=== PATIENT | female | born 1955 | race Hispanic/Latino ===

== ENCOUNTER 2017-03-13 05:59 | Inpatient (IN) | payer BC ==
[2017-03-13 06:39] LABS: #Basophils 0.1 thou/uL (0.0-0.2); #Eosinphils 0.2 thou/uL (0.0-0.7); #Lymphocytes 2.3 thou/uL (1.20-3.40); #Monocytes 0.4 thou/uL (0.11-0.59); #Neutrophils 2.9 thou/uL (1.40-6.50); %Basophils 2.2 % (0.0-1.0); %Lymphocytes 39.4 % (21.0-51.0); Hematocrit 35.6 % (36.0-47.0); Mean Platelet Volume 7.5 fL (7.4-10.4); Red Blood Cell (RBC) Count 3.98 mill/uL (4.20-5.40)
[2017-03-13] MEDS ORDERED: Nitroglycerin 0.4 MG TAB (25 Tab Bottle) ONE (06:42)
[2017-03-13 06:51] LABS: Prothrombin Time 13.6 SEC (12.0-14.7)
[2017-03-13 06:58] LABS: ALT (SGPT) 19 U/L (8-55); AST (SGOT) 23 U/L (5-34); Alkaline Phosphatase 99 U/L (40-150); Anion Gap 13 mmol/L (10-20); BUN (Urea Nitrogen) 23 mg/dL (9.8-20.1); Bilirubin, Total 0.6 mg/dL (0.2-1.2); Calc. Creatinine Clearance 0 mL/min (70-130); Calcium 9.6 mg/dL (7.8-10.44); Carbon Dioxide 23 mmol/L (23-31); Chloride 105 mmol/L (98-107); Estimated GFR-MDRD 56; Globulin 3.9 g/dL (2.4-3.5); Lipase 20 U/L (8-78); Magnesium 2.2 mg/dL (1.6-2.6); Protein, Total 7.6 g/dL (6.0-8.3)
[2017-03-13 07:00] LABS: Troponin I 0.184 ng/mL (< 0.028)
--- NOTE | 2017-03-13 07:58 | RAD ---
PORTABLE CHEST: Date: 03/13/17 HISTORY: Difficulty breathing and cough. FINDINGS: Heart size is borderline. There are some bibasilar interstitial lung changes consistent with atelecta sis or infiltrate. IMPRESSION: Bibasilar atelectasis versus infiltrate. POS: [facility]
[2017-03-13] MEDS ORDERED: Bumetanide 1 MG/4 ML VIAL IVP SCH (10:15)
[2017-03-13 10:22] LABS: Troponin I 0.252 ng/mL (< 0.028)
--- NOTE | 2017-03-13 10:23 | HP ---
CHIEF COMPLAINT: Shortness of breath. HISTORY OF PRESENT ILLNESS: This is a 62-year-old pleasant lady who was apparently in usual state of health until about Monday when she started having some shortness of breath. The patient thought i t would resolve by itself, but it got worse to the point that she could not lay down flat and she cou ld not take a few steps and it started happening with just minimal exertion, so she came into the [facility] for further evaluation and treatment. She also admits that this kind of feeding happened to he r during [place], but it resolved after a day. The patient says that she has some cough with so me greenish sputum production, some chills and admits to being noncompliant with diet. When she came in the blood pressure was 201/102. She has been admitted for further evaluation and treatment of th is. She denies any diarrhea, dysuria, polyuria, or fever. PAST MEDICAL HISTORY: Significant for diabetes, hypertension, hyperlipidemia. PAST SURGICAL HISTORY: Cholecystectomy, left wrist surgery, hysterectomy. SOCIAL HISTORY: Does not smoke, drink or do any recreational drugs. Lives with daughter. Works. ALLERGIES: LASIX, which gives her some kind of headache, TRAMADOL, SULFA gives her a rash. FLU SHOT S gives her Andrade's palsy and CODEINE which makes her crazy. MEDICATIONS: Levemir 50 mg p.o. b.i.d., losartan 50 p.o. daily, Coreg 6.25 b.i.d., metformin 1000 b. i.d., atorvastatin 40 daily, chlorthalidone, aspirin, and Nexium. FAMILY HISTORY: Negative for diabetes and hypertension. REVIEW OF SYSTEMS: Significant for some chills, no headache, no appetite. Some cough, no chest pain , no diarrhea, dysuria or polyuria. No memory or mood changes. No neck pain. The patient is signif icant for cough and shortness of breath. PHYSICAL EXAMINATION: VITAL SIGNS: Blood pressure when she came into the emergency room was 201/102, respirations 13. Oxy gen saturation is 99% on 2 liters, pulse of 60, temperature 97.8. GENERAL: Patient is lying in bed in no apparent distress. HEENT: Atraumatic, normocephalic. Pupils equally round, react to light. Extraocular movements inta ct. Mucous membranes moist. NECK: Supple. LUNGS: Some bibasilar rales. Air entry is good in the upper lobes, diminished in the lower lobes. HEART: S1, S2 normal. No murmurs or gallops. ABDOMEN: Soft, obese. EXTREMITIES: No cyanosis or clubbing. Some mild edema present. NEUROLOGICAL: Alert, awake, oriented. No cranial deficits. No sensorimotor deficits. LABORATORY DATA: Troponin is 0.184. BNP is 804. Sodium is 137, potassium is 4.0, chloride is 105, creatinine is 1, BUN is 23, glucose is 178. WBC count is 6, hemoglobin is 11.7, platelet is 331. ASSESSMENT AND PLAN: 1. Acute congestive heart failure exacerbation secondary to malignant hypertensive emergency. The p atient's blood pressure is down because of the nitrates she got in the ER. We will continue home med ications and give p.r.n. hydralazine to control her blood pressure. We will consult Cardiology as we ll to help optimize medications for congestive heart failure, will do echocardiogram, trend troponins . The patient is allergic to LASIX. We are going to give her a dose of Bumex, see how she reacts to it. If she has allergy to the Bumex we will get Nephrology's recommendations for appropriate diures is to make recommendations on diuretics. 2. Obesity. She has been counseled on diabetes. Insulin sliding scale. 3. Hypertension. We will continue home medications and do p.r.n. medications for now. 4. Hyperlipidemia, stable. 5. Elevated troponin, possibly secondary to demand ischemia. We will trend troponins anyway. 6. SCDs for deep venous thrombosis prophylaxis. I will work with the consultants in further caring for the patient.
[2017-03-13] MEDS ORDERED: diphenhydrAMINE 25 MG CAP PO PRN (13:19)
[2017-03-13] MEDS ORDERED: Dextrose 50% Abboject 50 ML SYRINGE SLOW IVP PRN (13:19)
[2017-03-13] MEDS ORDERED: Dextrose 5% in Water 1,000 ML IV PRN (13:19)
[2017-03-13] MEDS ORDERED: Calcium Carbonate 500 MG ChewTAB PO PRN (13:19)
[2017-03-13] MEDS ORDERED: Chloraseptic Spray 180 ml Bottle PO PRN (13:19)
[2017-03-13] MEDS ORDERED: Benzonatate 100 MG CAP PO PRN (13:19)
[2017-03-13] MEDS ORDERED: Acetaminophen 325 MG TAB PO PRN (13:19)
[2017-03-13 13:59] LABS: Troponin I 0.268 ng/mL (< 0.028)
[2017-03-13] MEDS: hydrALAZINE 25 MG TAB PO SCH ×2 (14:38→21:19)
[2017-03-13] MEDS: Carvedilol 6.25 MG TAB PO SCH (15:14)
[2017-03-13] MEDS: HumaLOG 300 UNITS/3 ML VIAL SC PRN (17:37)
[2017-03-13] MEDS: hydrALAZINE 20 MG/ML VIAL SLOW IVP PRN (17:44)
[2017-03-13 18:41] VITALS: BMI 48.6
[2017-03-13] MEDS: Famotidine 20 MG TAB PO SCH (21:19)
[2017-03-13] MEDS: Insulin Detemir 100 UNITS/ML 5 UNITS in Pre-Filled Syringe SC SCH (21:19)
[2017-03-13] MEDS: Docusate 100 MG CAP PO SCH (21:20)
[2017-03-13 21:36] LABS: Bilirubin Negative (Negative); Blood, Urine Negative (Negative); Glucose, Urine (Dipstick) Negative (Negative); Ketone, Urine Negative (Negative); Nitrite Negative (Negative); Protein, Urine (Dipstick) 100 mg/dL (Neg-Trace)
[2017-03-13 21:37] LABS: Bacteria/HPF 4+ HPF (None Seen); Hyaline Casts/LPF 0-3 HYALINE CAST LPF (0-3 Hyaline); WBC/HPF 21-50 HPF (0-3)
[2017-03-13 21:53] LABS: RBC/HPF 0-3 HPF (0-3)
[2017-03-14] MEDS: hydrALAZINE 20 MG/ML VIAL SLOW IVP PRN (04:51)
[2017-03-14 04:59] LABS: #Basophils 0.1 thou/uL (0.0-0.2); #Eosinphils 0.2 thou/uL (0.0-0.7); #Lymphocytes 2.4 thou/uL (1.20-3.40); #Monocytes 0.4 thou/uL (0.11-0.59); #Neutrophils 2.5 thou/uL (1.40-6.50); %Basophils 1.3 % (0.0-1.0); %Eosinophils 3.2 % (0.0-10.0); %Lymphocytes 43.6 % (21.0-51.0); %Monocytes 7.3 % (0.0-10.0); Hematocrit 31.4 % (36.0-47.0); Mean Platelet Volume 7.2 fL (7.4-10.4); Red Blood Cell (RBC) Count 3.49 mill/uL (4.20-5.40); White Blood Cell (WBC) Count 5.6 thou/uL (4.8-10.8)
[2017-03-14 05:35] LABS: ALT (SGPT) 14 U/L (8-55); AST (SGOT) 14 U/L (5-34); Alkaline Phosphatase 84 U/L (40-150); Anion Gap 10 mmol/L (10-20); BUN (Urea Nitrogen) 21 mg/dL (9.8-20.1); Bilirubin, Total 0.5 mg/dL (0.2-1.2); Calc. Creatinine Clearance 124 mL/min (70-130); Calcium 9.2 mg/dL (7.8-10.44); Carbon Dioxide 27 mmol/L (23-31); Chloride 104 mmol/L (98-107); Estimated GFR-MDRD 61; Globulin 3.1 g/dL (2.4-3.5); Protein, Total 6.4 g/dL (6.0-8.3)
--- NOTE | 2017-03-14 08:19 | RAD ---
RADIOGRAPH CHEST 2 VIEWS: Date: 03-14-17 Time: 7:48 a.m. HISTORY: 62-year-old female with dyspnea and CHF. COMPARISON: Prior single view study, 03-13-17. FINDINGS: There is a greater degree of blunting of the lateral costophrenic angles bilaterally now compared to the previous frontal view. The lateral view demonstrates blunting of the posterior costophrenic angle s bilaterally. There is cardiomegaly. There is pulmonary vascular prominence. Diffusely prominent int erstitial markings. No pneumothorax. IMPRESSION: 1. Evidence for congestive heart failure. 2. Small bilateral pleural effusions, increased in volume since yesterday. ITA POS: [facility]
[2017-03-14] MEDS: Famotidine 20 MG TAB PO SCH ×2 (09:47→20:47)
[2017-03-14] MEDS: Losartan Potassium 25 MG TAB PO SCH (09:47)
[2017-03-14] MEDS: hydrALAZINE 25 MG TAB PO SCH ×3 (09:48→20:48)
[2017-03-14] MEDS: Docusate 100 MG CAP PO SCH ×2 (09:49→20:56)
[2017-03-14] MEDS: Carvedilol 6.25 MG TAB PO SCH (09:49)
[2017-03-14] MEDS: Insulin Detemir 100 UNITS/ML 5 UNITS in Pre-Filled Syringe SC SCH (09:57)
[2017-03-14] MEDS ORDERED: cefTRIAXone\\ROCEPHIN 1 GM in Sodium Chloride 0.9% 100 ML IVPB SCH (13:15)
[2017-03-14 14:02] LABS: Troponin I 0.226 ng/mL (< 0.028)
[2017-03-14] MEDS: HumaLOG 300 UNITS/3 ML VIAL SC PRN (14:51)
[2017-03-14] MEDS: Bumetanide 1 MG/4 ML VIAL IVP SCH (16:16)
[2017-03-14] MEDS: cefTRIAXone\\ROCEPHIN 1 GM, Syringe 0.4 ML in Sterile Water 9.6 ML SLOW IVP SCH (16:17)
--- NOTE | 2017-03-14 16:21 | PDOC.PN ---
- Subjective Encounter Start Date: 03/14/17 Encounter Start Time: 16:19 Patient seen and examined. No new complaints. No overnight events - Objective MAR Reviewed: Yes Vital Signs & Weight: Vital Signs (12 hours) Temp Pulse Resp BP BP Pulse Ox 03/14/17 14:51 68 03/14/17 11:54 97.9 F 68 18 172/72 H 95 03/14/17 09:49 200/88 H 03/14/17 09:48 65 200/88 H 03/14/17 09:45 97.7 F 61 20 200/88 H 95 03/14/17 04:51 65 196/86 H Weight Weight 272 lb 9.6 oz I&O: 03/13/17 03/14/17 03/15/17 06:59 06:59 06:59 Intake Total 340 Output Total 250 Balance 90 Result Diagrams: 03/14/17 04:15 03/14/17 04:15 Additional Labs: Accuchecks 03/14/17 03/14/17 03/13/17 11:52 06:14 20:48 POC Glucose 212 H 158 H 169 H 03/13/17 17:03 POC Glucose 160 H Phys Exam - Physical Examination Constitutional: NAD HEENT: PERRLA Neck: no nodes Respiratory: no wheezing bibasilar rales Cardiovascular: RRR Gastrointestinal: non-tender Musculoskeletal: pulses present, edema present Neurological: moves all 4 limbs Psychiatric: A&O x 3 Dx/Plan (1) UTI (urinary tract infection) Status: Acute (2) CHF (congestive heart failure) Code(s): I50.9 - HEART FAILURE, UNSPECIFIED Status: Acute (3) Diabetes mellitus Code(s): E11.9 - TYPE 2 DIABETES MELLITUS WITHOUT COMPLICATIONS Status: Acute (4) HTN (hypertension) Code(s): I10 - ESSENTIAL (PRIMARY) HYPERTENSION Status: Acute (5) Hyperlipidemia Code(s): E78.5 - HYPERLIPIDEMIA, UNSPECIFIED Status: Acute - Plan * .
[2017-03-14] MEDS: Carvedilol 25 MG TAB PO SCH (17:47)
[2017-03-14] MEDS: metFORMIN 500 MG TAB PO SCH (17:48)
[2017-03-14 20:31] LABS: Troponin I 0.179 ng/mL (< 0.028)
[2017-03-14] MEDS: Insulin Detemir 100 UNITS/ML 8 UNITS in Pre-Filled Syringe SC SCH (20:48)
[2017-03-15] MEDS: hydrALAZINE 20 MG/ML VIAL SLOW IVP PRN ×2 (04:40→16:14)
[2017-03-15] MEDS: Bumetanide 1 MG/4 ML VIAL IVP SCH (04:57)
[2017-03-15] MEDS ORDERED: Diazepam 5 MG TAB PO SCH (06:00)
[2017-03-15 06:29] LABS: Anion Gap 12 mmol/L (10-20); BUN (Urea Nitrogen) 22 mg/dL (9.8-20.1); Calc. Creatinine Clearance 92 mL/min (70-130); Calcium 9.6 mg/dL (7.8-10.44); Carbon Dioxide 26 mmol/L (23-31); Chloride 102 mmol/L (98-107); Estimated GFR-MDRD 44; Phosphorus 3.7 mg/dL (2.3-4.7)
[2017-03-15] MEDS: Insulin Detemir 100 UNITS/ML 8 UNITS in Pre-Filled Syringe SC SCH ×2 (08:20→22:07)
[2017-03-15] MEDS: metFORMIN 500 MG TAB PO SCH ×2 (08:20→18:08)
[2017-03-15] MEDS: Losartan Potassium 25 MG TAB PO SCH (08:20)
[2017-03-15] MEDS: Carvedilol 25 MG TAB PO SCH ×3 (08:21→19:26)
[2017-03-15] MEDS: hydrALAZINE 25 MG TAB PO SCH ×3 (08:21→22:08)
[2017-03-15] MEDS: Famotidine 20 MG TAB PO SCH ×2 (08:21→22:14)
[2017-03-15] MEDS: Docusate 100 MG CAP PO SCH ×2 (09:05→22:03)
[2017-03-15] MEDS ORDERED: hydrALAZINE 25 MG TAB PO SCH ×2 (11:08→11:30)
[2017-03-15] MEDS ORDERED: Loratadine 5 MG/5 ML UDCUP PO PRN (11:43)
[2017-03-15] MEDS ORDERED: Communication Order-Pharmacy FS SCH (11:45)
[2017-03-15] MEDS: Ondansetron HCl/PF 4 MG/2 ML Vial IVP PRN ×2 (12:20→16:15)
--- NOTE | 2017-03-15 12:58 | CON ---
DATE OF CONSULTATION: 03/15/2017 REASON FOR CONSULTATION: Congestive heart failure, systolic, acute. HISTORY OF PRESENT ILLNESS: Ms. Hanson is a 62-year-old woman. The patient came to the hospital 2 d ays ago after feeling short of breath. She was planning on going to work, but had difficulty breathi ng, went to the emergency room. She was found to be in congestive heart failure. She has been treat ed for congestive heart failure here for a couple of days. He is feeling better, but the ejection fr action is markedly diminished. The patient otherwise has been doing fairly well from a cardiac standpoint. She did notice some swel ling of her lower extremities recently, but the breathing really did not get to be big problem until 03/13/2017 and she came here at the hospital. She did not have chest pain or pressure. The ejection fraction was estimated at 30%-35%. We have been consulted. She had no chest pain or pr essure. PAST MEDICAL HISTORY: 1. She has a history of diabetes for at least 10 years, on insulin. 2. Hypertension. 3. She has knee problem, she is hoping to get a knee replacement. 4. Had a flu shot which gave her "Andrade's palsy, she said." 5. CODEINE allergy. ALLERGIES: To TRAMADOL, SULFA, gave her a rash, flu shots gave her Andrade's palsy, CODEINE, made her cr azy according to the patient. MEDICATIONS: Prior to admission included, 1. Carvedilol 6.25 mg twice a day. 2. Losartan 50 mg twice a day. 3. Lipitor 40 mg daily. 4. Chlorthalidone 25 mg a day. 5. Aspirin. 6. Omeprazole. REVIEW OF SYSTEMS: CONSTITUTIONAL: No significant weight gain or loss. VISION: No changes. HEARING: No changes. PULMONARY: No cough or wheezing. CARDIAC: As outlined above. GASTROINTESTINAL: No nausea, vomiting, or diarrhea. SKIN: No rashes. NEUROLOGIC: No unilateral weakness or numbness. PSYCHIATRIC: No unusual depression or anxiety. HEMATOLOGIC: No unusual bruising. GENITOURINARY: No burning with urination. MUSCULOSKELETAL: No unusual joint pains. PHYSICAL EXAMINATION: GENERAL: Pleasant patient. She is extremely overweight. 5 foot 3 inches tall, 270 pounds. BMI is 48 kilograms per meter squared. EYES: Sclerae nonicteric. Mouth mucous membranes moist. NECK: Supple, no lymphadenopathy. LUNGS: Clear, no wheezing, rales or rhonchi. CARDIOVASCULAR: Distant, but no S3. There is a 2-3/6 systolic murmur along the left midsternal bord er. No diastolic murmur, no S3. ABDOMEN: Soft, nontender, no hepatosplenomegaly. EXTREMITIES: No clubbing or cyanosis. There is no edema. HEMATOLOGIC: No unusual bruising. GENITOURINARY: Not examined. PULSES: She has good femoral pulses bilaterally. The distal pulses are palpable, difficult to feel dorsalis pedis. LABORATORY DATA: Creatinine has gone to 1.25. INR is 1. Hemoglobin is 10.4. BNP 804.4. IMAGING: EKG, normal sinus rhythm, left axis deviation, nonspecific ST and T-wave changes. ASSESSMENT: 1. New onset congestive heart failure, systolic, acute. Ejection fraction 30%-35%. 2. Longstanding diabetes. 3. Hypertension. 4. Renal insufficiency stage 3. PLAN: 1. Hold diuretics. 2. Proceed to cardiac catheterization tomorrow. I discussed risks of stroke, heart attack, iodine a llergy, loss of blood supply to the leg or kidney, stent thrombosis, stent restenosis all discussed. The patient understands and wishes to proceed. 3. Check lipid profile. 4. Check iron levels, may be iron deficient.
[2017-03-15] MEDS ORDERED: cefTRIAXone\\ROCEPHIN 1 GM in Sodium Chloride 0.9% 100 ML IVPB SCH (14:15)
--- NOTE | 2017-03-15 14:19 | PDOC.PN ---
- Subjective Encounter Start Date: 03/15/17 Encounter Start Time: 14:17 had e/o vomiting no f/c no cp no sob - Objective MAR Reviewed: Yes Vital Signs & Weight: Vital Signs (12 hours) Temp Pulse Pulse Pulse Resp BP BP 03/15/17 12:00 97.6 F 65 17 03/15/17 10:20 68 69 131/62 03/15/17 08:28 98.2 F 70 18 03/15/17 08:25 98.2 F 70 18 03/15/17 06:04 72 03/15/17 04:40 70 210/90 H 03/15/17 04:00 98.2 F 84 20 BP BP BP Pulse Ox Pulse Ox Pulse Ox 03/15/17 12:00 152/70 H 96 03/15/17 10:20 143/65 H 95 96 03/15/17 08:28 98 03/15/17 08:25 189/81 H 98 03/15/17 06:04 190/81 H 03/15/17 04:40 03/15/17 04:00 224/102 H 96 Weight Weight 270 lb 9.6 oz I&O: 03/14/17 03/15/17 03/16/17 06:59 06:59 06:59 Intake Total 340 480 Output Total 250 150 Balance 90 330 Result Diagrams: 03/14/17 04:15 03/15/17 05:56 Additional Labs: Accuchecks 03/15/17 03/15/17 03/14/17 11:58 05:49 19:52 POC Glucose 155 H 140 H 149 H 03/14/17 17:12 POC Glucose 135 H Phys Exam - Physical Examination Constitutional: NAD HEENT: PERRLA Neck: no JVD Respiratory: no wheezing Cardiovascular: no significant murmur Gastrointestinal: non-tender Musculoskeletal: pulses present Neurological: moves all 4 limbs Psychiatric: A&O x 3 Dx/Plan (1) UTI (urinary tract infection) Status: Acute Comment: on rocephin (2) CHF (congestive heart failure) Code(s): I50.9 - HEART FAILURE, UNSPECIFIED Status: Acute (3) Diabetes mellitus Code(s): E11.9 - TYPE 2 DIABETES MELLITUS WITHOUT COMPLICATIONS Status: Acute (4) HTN (hypertension) Code(s): I10 - ESSENTIAL (PRIMARY) HYPERTENSION Status: Acute (5) Hyperlipidemia Code(s): E78.5 - HYPERLIPIDEMIA, UNSPECIFIED Status: Acute (6) Hypertensive emergency Code(s): I16.1 - HYPERTENSIVE EMERGENCY Status: Acute (7) Elevated troponin Code(s): R74.8 - ABNORMAL LEVELS OF OTHER SERUM ENZYMES Status: Acute - Plan * for cath in am * cont bumex * f/u urine cul * increase dose of hydralazine to 50 tid
[2017-03-15] MEDS: cefTRIAXone\\ROCEPHIN 1 GM, Syringe 0.4 ML in Sterile Water 9.6 ML SLOW IVP SCH (14:46)
[2017-03-15] MEDS ORDERED: ALPRAZolam 0.25 MG TAB PO PRN (17:47)
[2017-03-15] MEDS ORDERED: Promethazine HCl 25 MG/ML VIAL SLOW IVP SCH (18:00)
[2017-03-15] MEDS: Atorvastatin Calcium 40 MG TAB PO SCH (22:07)
[2017-03-16] MEDS: Losartan Potassium 25 MG TAB PO SCH (05:54)
[2017-03-16] MEDS: Carvedilol 25 MG TAB PO SCH ×2 (05:54→17:44)
[2017-03-16] MEDS ORDERED: Sodium Chloride 0.9% 1,000 ML IV SCH (06:00)
[2017-03-16] MEDS ORDERED: Heparin 1000 UNIT/NS 500ML(OR) 1,000 ML ONE (06:52)
[2017-03-16 07:14] LABS: Calcium 9.2 mg/dL (7.8-10.44); Chloride 101 mmol/L (98-107)
[2017-03-16 07:17] LABS: Anion Gap 13 mmol/L (10-20); Carbon Dioxide 25 mmol/L (23-31)
[2017-03-16 07:19] LABS: BUN (Urea Nitrogen) 30 mg/dL (9.8-20.1); BUN/Creatinine Ratio 15.38
[2017-03-16 07:21] LABS: Iron 49 ug/dL (50-170)
[2017-03-16] MEDS ORDERED: Fentanyl 100 MCG/2 ML VIAL ONE (07:34)
[2017-03-16] MEDS ORDERED: Midazolam HCl 2 mg/2 ml Vial ONE (07:34)
[2017-03-16 07:43] LABS: Calc. Creatinine Clearance 57 mL/min (70-130); Estimated GFR-MDRD 26; Phosphorus 4.6 mg/dL (2.3-4.7)
[2017-03-16] MEDS ORDERED: Nitroglycerin 100MG/250ML BOT 250 ML ONE (07:53)
[2017-03-16] MEDS: Insulin Detemir 100 UNITS/ML 8 UNITS in Pre-Filled Syringe SC SCH ×2 (08:20→20:32)
[2017-03-16] MEDS: Docusate 100 MG CAP PO SCH ×2 (08:20→20:30)
[2017-03-16] MEDS: hydrALAZINE 25 MG TAB PO SCH ×3 (08:20→20:25)
[2017-03-16] MEDS: Famotidine 20 MG TAB PO SCH ×2 (08:20→20:25)
[2017-03-16] MEDS ORDERED: Nitroglycerin 0.4 MG TAB (25 Tab Bottle) SL PRN (08:28)
[2017-03-16] MEDS ORDERED: Acetaminophen/Codeine 30-300mg Tablet PO PRN (08:28)
[2017-03-16] MEDS ORDERED: Sodium Chloride 0.9% 200 ML IV SCH (08:30)
[2017-03-16] MEDS: Sodium Chloride 0.9% 1,000 ML IV SCH ×3 (09:40→18:28)
[2017-03-16] MEDS: metFORMIN 500 MG TAB PO SCH (09:59)
--- NOTE | 2017-03-16 12:06 | PDOC.PN ---
- Subjective Encounter Start Date: 03/16/17 Encounter Start Time: 12:07 Patient seen and examined. No new complaints. No overnight events for cath - Objective MAR Reviewed: Yes Vital Signs & Weight: Vital Signs (12 hours) Temp Pulse Resp BP Pulse Ox 03/16/17 07:05 98.8 F 68 18 92 L 03/16/17 06:50 98.8 F 68 18 137/60 92 L 03/16/17 04:40 98 03/16/17 04:00 98.6 F 76 16 139/63 95 03/16/17 00:40 98 Weight Weight 264 lb 4.8 oz I&O: 03/15/17 03/16/17 03/17/17 06:59 06:59 06:59 Intake Total 480 960 Output Total 150 1200 Balance 330 -240 Result Diagrams: 03/14/17 04:15 03/16/17 06:48 Additional Labs: Accuchecks 03/16/17 03/15/17 03/15/17 06:39 20:12 17:15 POC Glucose 153 H 164 H 144 H 03/15/17 11:58 POC Glucose 155 H Phys Exam - Physical Examination Constitutional: NAD HEENT: PERRLA Neck: no JVD Respiratory: no wheezing Cardiovascular: no significant murmur Gastrointestinal: non-tender Musculoskeletal: pulses present Neurological: moves all 4 limbs Psychiatric: A&O x 3 Dx/Plan (1) UTI (urinary tract infection) Status: Acute Comment: on rocephin (2) CHF (congestive heart failure) Code(s): I50.9 - HEART FAILURE, UNSPECIFIED Status: Acute Qualifiers: Congestive heart failure type: systolic Comment: ef- 30% (3) Diabetes mellitus Code(s): E11.9 - TYPE 2 DIABETES MELLITUS WITHOUT COMPLICATIONS Status: Acute (4) HTN (hypertension) Code(s): I10 - ESSENTIAL (PRIMARY) HYPERTENSION Status: Acute (5) Hyperlipidemia Code(s): E78.5 - HYPERLIPIDEMIA, UNSPECIFIED Status: Acute (6) Hypertensive emergency Code(s): I16.1 - HYPERTENSIVE EMERGENCY Status: Acute (7) Elevated troponin Code(s): R74.8 - ABNORMAL LEVELS OF OTHER SERUM ENZYMES Status: Acute (8) ARF (acute renal failure) Status: Acute - Plan * f/u cath results * f/u creatinine * ivf * f/u card plan * cont abx * f/u urine culture results
[2017-03-16] MEDS ORDERED: Iron Dextran 500 MG in Sodium Chloride 0.9% 250 ML 250 ML IVPB SCH (14:00)
[2017-03-16] MEDS: cefTRIAXone\\ROCEPHIN 1 GM, Syringe 0.4 ML in Sterile Water 9.6 ML SLOW IVP SCH (14:42)
[2017-03-16] MEDS ORDERED: Iopamidol 370 76% 100 ML VIAL ONE (15:00)
[2017-03-16] MEDS: HumaLOG 300 UNITS/3 ML VIAL SC PRN (17:48)
[2017-03-16] MEDS: Atorvastatin Calcium 40 MG TAB PO SCH (20:26)
[2017-03-16] MEDS: Acetylcysteine 10% 100 MG/ML 30 ml Vial PO SCH (20:30)
[2017-03-17] MEDS: Ondansetron HCl/PF 4 MG/2 ML Vial IVP PRN (01:37)
[2017-03-17 06:03] LABS: Anion Gap 13 mmol/L (10-20); BUN (Urea Nitrogen) 32 mg/dL (9.8-20.1); BUN/Creatinine Ratio 18.82; Calc. Creatinine Clearance 66 mL/min (70-130); Carbon Dioxide 23 mmol/L (23-31); Chloride 102 mmol/L (98-107); Estimated GFR-MDRD 31; Phosphorus 3.8 mg/dL (2.3-4.7)
--- NOTE | 2017-03-17 08:06 | PDOC.PN ---
- Subjective Encounter Start Date: 03/17/17 Encounter Start Time: 08:00 Subjective: Patient without complaint. No CP/SOB. Eager to go home. - Objective MAR Reviewed: Yes Vital Signs & Weight: Vital Signs (12 hours) Temp Pulse Resp BP BP Pulse Ox 03/17/17 04:00 99.1 F 66 20 144/66 H 92 L 03/16/17 20:25 67 140/65 Weight Weight 270 lb I&O: 03/16/17 03/17/17 03/18/17 06:59 06:59 06:59 Intake Total 960 1004 Output Total 1200 650 Balance -240 354 Result Diagrams: 03/14/17 04:15 03/17/17 04:40 Additional Labs: Accuchecks 03/17/17 03/16/17 03/16/17 06:04 20:34 17:45 POC Glucose 135 H 201 H 215 H 03/16/17 11:35 POC Glucose 155 H Phys Exam - Physical Examination Constitutional: NAD HEENT: moist MMs Respiratory: no wheezing, no rales, no rhonchi, clear to auscultation bilateral Cardiovascular: RRR, no significant murmur Gastrointestinal: soft Neurological: non-focal, moves all 4 limbs Psychiatric: normal affect, A&O x 3 Dx/Plan (1) UTI (urinary tract infection) Status: Acute Comment: on rocephin (2) CHF (congestive heart failure) Code(s): I50.9 - HEART FAILURE, UNSPECIFIED Status: Acute Qualifiers: Congestive heart failure type: systolic Comment: ef- 30% (3) Diabetes mellitus Code(s): E11.9 - TYPE 2 DIABETES MELLITUS WITHOUT COMPLICATIONS Status: Acute (4) HTN (hypertension) Code(s): I10 - ESSENTIAL (PRIMARY) HYPERTENSION Status: Chronic (5) Hyperlipidemia Code(s): E78.5 - HYPERLIPIDEMIA, UNSPECIFIED Status: Chronic (6) Hypertensive emergency Code(s): I16.1 - HYPERTENSIVE EMERGENCY Status: Resolved (7) ARF (acute renal failure) Status: Acute Plan: improving today - Plan cont current plan of care D/C home with Bumex, Nitrofurantoin, f/u with Dr. Peterson in 6 days. * . - Discharge Day Encounter end time: 09:00
[2017-03-17] MEDS: Sodium Chloride 0.9% 1,000 ML IV SCH (08:31)
[2017-03-17] MEDS: Carvedilol 25 MG TAB PO SCH (08:32)
[2017-03-17] MEDS: Docusate 100 MG CAP PO SCH (08:33)
[2017-03-17] MEDS: Famotidine 20 MG TAB PO SCH (08:33)
[2017-03-17] MEDS: hydrALAZINE 25 MG TAB PO SCH (08:33)
[2017-03-17] MEDS: Losartan Potassium 25 MG TAB PO SCH (08:34)
[2017-03-17] MEDS: Insulin Detemir 100 UNITS/ML 8 UNITS in Pre-Filled Syringe SC SCH (08:34)
[2017-03-17] MEDS: Acetylcysteine 10% 100 MG/ML 30 ml Vial PO SCH (08:35)
[2017-03-17] MEDS ORDERED: Nitrofurantoin Monohyd/M-Cryst 100 MG CAP PO SCH (09:00)
--- NOTE | 2017-03-17 09:15 | PRG ---
DATE OF SERVICE: 03/17/2017 HISTORY: Ms. Hanson is doing well today. No chest pain or pressure. She feels well. She received hydration yesterday. PHYSICAL EXAMINATION: GENERAL: The patient is feeling well today. VITAL SIGNS: Blood pressure 144/66, pulse 66 regular. LUNGS: Clear. CARDIAC: Normal S1, S2. ABDOMEN: Soft, nontender. SKIN: Skin is warm and dry. LABORATORY: The creatinine went from 1.95 yesterday to 1.7 today. Potassium is 3.8. ASSESSMENT: 1. Coronary artery disease, best treated medically. 2. Hypercholesterolemia, mixed, tolerating statin therapy, previously was on a statin, but the lipid levels still elevated on those medicines. 3. Iron deficiency anemia, congestive heart failure, ejection fraction 40%. 4. Renal failure stage III. PLAN: 1. She is on losartan 50 mg a day, later increase to 100 mg a day if tolerated. 2. Coreg 12.5 mg twice daily. 3. Aspirin 81 mg a day. 4. Atorvastatin 80 mg a day. 5. Metformin is being held in view of renal insufficiency. 6. She will come back and see us in the office next week to see Cecille Murrell, nurse practitioner.
--- NOTE | 2017-03-17 10:29 | DIS ---
PRIMARY CARE PHYSICIAN: Lorenzo Davis M.D. DIAGNOSES ON ADMISSION: 1. Acute congestive heart failure. 2. Obesity. 3. Hypertension. 4. Hyperlipidemia. 5. Elevated troponins. DIAGNOSES ON DISCHARGE: 1. Systolic and diastolic congestive heart failure with ejection fraction of 30%. 2. Mild coronary artery disease. 3. Diabetes mellitus type 2. 4. Hypertension. 5. Hyperlipidemia. 6. Acute renal failure. 7. Urinary tract infection with Klebsiella. PROCEDURES: 1. Echocardiogram showed ejection fraction of 30-35% and evidence of diastolic dysfunction as well. 2. Coronary catheterization showing mild multivessel coronary artery disease not requiring stenting or surgery. CONSULTATIONS: Cardiology, Dr. Peterson. PERTINENT LABORATORY DATA: The patient had a creatinine of 1 on admission. It then jumped up to 1.9 5 with diuresis, now down to 1.70 in discharge. Urine culture did grow back greater than 100,000 Kle bsiella pneumoniae, pansensitive including to nitrofurantoin. SUMMARY OF HOSPITAL COURSE: This is a 62-year-old female who came to the ER, presenting with shortne ss of breath. She was found to be in acute congestive failure, had elevated brain natriuretic peptid e of 800 and was admitted to the hospital and was diuresed with improvement in her symptoms. Dr. Selma navarro was consulted for Cardiology. The patient was also noted to have evidence of urinary tract infec tion on urinalysis. She was started on Rocephin during her hospital stay. The patient had a cardiac catheterization as above and it was determined that she will be treated medically. She did have a b ump in her creatinine with aggressive diuresis. The patient was diuresed with Bumex twice a day due to her reported allergy for furosemide and she did not have any problems with T-max, though she did h ave a bump in creatinine as above. The patient's Bumex was discontinued with the rise in creatinine and she had wide hydration with improvement in her creatinine before discharge. DISCHARGE MANAGEMENT: Discharged home. Follow up with Dr. Peterson on 03/23/2017 for repeat basic met abolic panel. ACTIVITY: As tolerated. DIET: Diabetic, healthy heart, low sodium diet. DISCHARGE MEDICATIONS: 1. Bumex 0.5 mg daily, 30 tablets dispensed. 2. Carvedilol 12.5 mg twice a day, 60 tablets dispensed. 3. Cozaar 50 mg daily, 30 tablets dispensed. 4. Nitrofurantoin 100 mg twice a day for 7 days, 14 tablets dispensed. 5. Resume aspirin 81 mg daily. 6. Atorvastatin 40 mg daily. 7. Omeprazole 20 mg daily. 8. Resume home Lantus.
[2017-03-17 11:09] VITALS: BP 156/72; TEMP 98.2
== END 2017-03-17 11:18 | disposition home or self-care (01) | DRG 286 ==
LOC: ERS 05:59 → ERHOLD 09:46 → 2NO 14:00
PROVIDERS: ADMIT Internal Medicine; ATTEND Internal Medicine
PROC: 4A023N7 Measurement of Cardiac Sampling and Pressure, Left Heart, Percutaneous Approach (ICD-10-PCS; principal; 2017-03-16)
PROC: B2111ZZ Fluoroscopy of Multiple Coronary Arteries using Low Osmolar Contrast (ICD-10-PCS; 2017-03-16)
PROC: B2151ZZ Fluoroscopy of Left Heart using Low Osmolar Contrast (ICD-10-PCS; 2017-03-16)
DX: I13.0 Hypertensive heart and chronic kidney disease with heart failure and stage 1 through stage 4 chronic kidney disease, or unspecified chronic kidney disease (principal); I50.43 Acute on chronic combined systolic (congestive) and diastolic (congestive) heart failure; E11.22 Type 2 diabetes mellitus with diabetic chronic kidney disease; N17.9 Acute kidney failure, unspecified; I24.8 Other forms of acute ischemic heart disease; N18.3 Chronic kidney disease, stage 3 (moderate); Z68.42 Body mass index [BMI] 45.0-49.9, adult; N39.0 Urinary tract infection, site not specified; Z79.4 Long term (current) use of insulin; Z90.49 Acquired absence of other specified parts of digestive tract; E66.9 Obesity, unspecified; Z88.2 Allergy status to sulfonamides; Z90.710 Acquired absence of both cervix and uterus; Z88.5 Allergy status to narcotic agent; Z88.7 Allergy status to serum and vaccine; Z88.8 Allergy status to other drugs, medicaments and biological substances; E78.00 Pure hypercholesterolemia, unspecified; D50.9 Iron deficiency anemia, unspecified; D63.1 Anemia in chronic kidney disease; B96.89 Other specified bacterial agents as the cause of diseases classified elsewhere; I25.118 Atherosclerotic heart disease of native coronary artery with other forms of angina pectoris; N28.9 Disorder of kidney and ureter, unspecified
CPT/HCPCS: 36415; 36416; 71010; 71020; 76942; 80053; 80069; 81001; 82553; 82728; 83540; 83550; 83690; 83735; 83880; 84484; 85025; 85610; 87040; 87077; 87086; 87186; 93005; 93306; 93458; 93798; 96374; 99152; 99153; A4216; C1769; J0360; J0696; J1644; J1750; J1815; J2250; J2405; J2550; J3010; J3490; J7050; J7608

== ENCOUNTER 2018-02-19 16:13 | Outpatient (CLI) | payer BC ==
--- NOTE | 2018-02-19 18:34 | RAD ---
CHEST 2 VIEWS: Date: 02/19/18 COMPARISON: 03/14/17. HISTORY: Bronchitis. FINDINGS: Normal cardiac silhouette. Pulmonary vessels and hilum are normal. Blunting of both costophrenic angl es, which may represent chronic change. No consolidation or mass. No pneumothorax or osseous abnormal ities. IMPRESSION: Blunting of both costophrenic angles, likely chronic. POS: [facility]
== END 2018-02-19 16:14 | disposition home or self-care (01) ==
LOC: BICRAD 16:13
PROVIDERS: ATTEND Family Medicine
DX: J40 Bronchitis, not specified as acute or chronic (principal); J98.4 Other disorders of lung
CPT/HCPCS: 36415; 71046; 80053; 83880; 85025

== ENCOUNTER 2018-04-08 21:45 | Inpatient (IN) | payer BC ==
--- NOTE | 2018-04-08 22:37 | RAD ---
CHEST ONE VIEW: History: Shortness of breath. Cough. Comparison: 02-19-18 FINDINGS: Normal cardiac silhouette. Lungs and pleural spaces are clear. Chronic changes in the lung bases. No pneumothorax or osseous abnormalities. IMPRESSION: No acute cardiopulmonary process. POS: [facility]
[2018-04-08 22:48] LABS: #Eosinphils 0.1 thou/uL (0.0-0.7); #Lymphocytes 0.6 thou/uL (1.20-3.40); #Monocytes 0.4 thou/uL (0.11-0.59); #Neutrophils 4.5 thou/uL (1.40-6.50); %Basophils 0.2 % (0.0-1.0); %Eosinophils 1.1 % (0.0-10.0); %Lymphocytes 10.9 % (21.0-51.0); %Monocytes 7.2 % (0.0-10.0); %Neutrophils 80.7 % (42.0-75.0); Hemoglobin 10.6 g/dL (12.0-16.0); Mean Corpuscular HGB CONC 32.9 g/dL (32.0-36.0); Mean Corpuscular Hemoglobin 29.5 pg (27.0-31.0); Mean Corpuscular Volume 89.9 fL (78.0-98.0); Mean Platelet Volume 7.1 fL (7.4-10.4); Platelet Count 184 thou/uL (130-400); RBC Distribution Width 11.9 % (11.5-14.5); Red Blood Cell (RBC) Count 3.59 mill/uL (4.20-5.40); White Blood Cell (WBC) Count 5.5 thou/uL (4.8-10.8)
[2018-04-08 23:05] LABS: ALT (SGPT) 18 U/L (8-55); AST (SGOT) 26 U/L (5-34); Albumin 3.8 g/dL (3.4-4.8); Alkaline Phosphatase 91 U/L (40-150); Anion Gap 15 mmol/L (10-20); BUN (Urea Nitrogen) 24 mg/dL (9.8-20.1); Bilirubin, Total 0.8 mg/dL (0.2-1.2); Calc. Creatinine Clearance 0 mL/min (70-130); Calcium 9.6 mg/dL (7.8-10.44); Carbon Dioxide 22 mmol/L (23-31); Chloride 104 mmol/L (98-107); Estimated GFR-MDRD 50; Globulin 3.6 g/dL (2.4-3.5); Glucose 94 mg/dL (80-115); Lipase 9 U/L (8-78); Potassium 3.7 mmol/L (3.5-5.1); Protein, Total 7.4 g/dL (6.0-8.3); Sodium 137 mmol/L (136-145)
[2018-04-08 23:33] LABS: CKMB 1.9 ng/mL (0-6.6)
[2018-04-08 23:51] LABS: Bilirubin Small (Negative); Blood, Urine Moderate (Negative); Clarity CLEAR (Clear); Glucose, Urine (Dipstick) Negative (Negative); Leukocyte Negative (Negative); Nitrite Negative (Negative); Protein, Urine (Dipstick) > or equal to 300 mg/dL (Neg-Trace); Specific Gravity, Urine 1.022 (1.002-1.036); pH, Urine 5.5 (5.0-9.0)
[2018-04-08 23:53] LABS: Bacteria/HPF None Seen HPF (None Seen); Hyaline Casts/LPF 7-10 HYALINE CAST LPF (0-3 Hyaline); Pathc Cast-AUWi Flag 0.29 (0-2.49); RBC/HPF 21-50 HPF (0-3); Squamous Epithelial 0-3 HPF (0-3); WBC/HPF 0-3 HPF (0-3)
[2018-04-08] MEDS ORDERED: Nitroglycerin 2% Ointment 1 INCH/1 GM Packet ONE (23:59)
[2018-04-09 00:05] LABS: Oval Fat Bodies/HPF None Seen HPF (None Seen); Renal Epithelial None Seen HPF (0-3); Sperm/HPF None Seen HPF (None Seen); Transitional Epithelial NONE SEEN HPF (0-3); Trichomonas/HPF None Seen HPF (None Seen); Yeast-All Forms None Seen HPF (None Seen)
[2018-04-09] MEDS ORDERED: Nitroglycerin 2% Ointment 1 INCH/1 GM Packet ONE (00:21)
[2018-04-09] MEDS ORDERED: Bumetanide 1 MG/4 ML VIAL IVP SCH ×2 (00:45→06:00)
[2018-04-09] MEDS ORDERED: Ondansetron PF 4 MG/2 ML Vial ONE (01:13)
[2018-04-09 02:00] LABS: Troponin I 0.156 ng/mL (< 0.028)
[2018-04-09] MEDS ORDERED: Bisacodyl 5 MG TAB PO PRN (02:20)
[2018-04-09] MEDS ORDERED: Acetaminophen 650 MG Suppository PR PRN (02:20)
[2018-04-09] MEDS ORDERED: Senokot S 8.6-50 MG TAB PO PRN (02:20)
[2018-04-09] MEDS ORDERED: Dextrose 5% in Water 1,000 ML IV PRN (02:20)
[2018-04-09] MEDS ORDERED: Zolpidem Tartrate 5 MG TAB PO PRN (02:20)
[2018-04-09] MEDS ORDERED: HumaLOG 300 UNITS/3 ML VIAL SC PRN (02:20)
[2018-04-09] MEDS ORDERED: Dextrose 50% Abboject 50 ML SYRINGE SLOW IVP PRN (02:20)
[2018-04-09 02:49] VITALS: BMI 49.2
[2018-04-09] MEDS: cefTRIAXone\\ROCEPHIN 2 GM in Sodium Chloride 0.9% 100 ML IVPB SCH (03:45)
[2018-04-09] MEDS: Azithromycin 500 MG in Sodium Chloride 0.9% 250 ML 250 ML IVPB SCH (04:52)
[2018-04-09 05:35] LABS: #Lymphocytes 0.6 thou/uL (1.20-3.40); #Monocytes 0.2 thou/uL (0.11-0.59); #Neutrophils 3.1 thou/uL (1.40-6.50); %Basophils 0.2 % (0.0-1.0); %Eosinophils 0.6 % (0.0-10.0); %Lymphocytes 14.8 % (21.0-51.0); %Monocytes 5.8 % (0.0-10.0); %Neutrophils 78.6 % (42.0-75.0); Hemoglobin 8.8 g/dL (12.0-16.0); Mean Corpuscular HGB CONC 32.7 g/dL (32.0-36.0); Mean Corpuscular Hemoglobin 29.4 pg (27.0-31.0); Mean Corpuscular Volume 89.8 fL (78.0-98.0); Mean Platelet Volume 7.1 fL (7.4-10.4); Platelet Count 153 thou/uL (130-400); RBC Distribution Width 11.9 % (11.5-14.5); White Blood Cell (WBC) Count 3.9 thou/uL (4.8-10.8)
[2018-04-09 05:50] LABS: Anion Gap 13 mmol/L (10-20); BUN (Urea Nitrogen) 26 mg/dL (9.8-20.1); Calc. Creatinine Clearance 105 mL/min (70-130); Calcium 8.5 mg/dL (7.8-10.44); Carbon Dioxide 23 mmol/L (23-31); Chloride 106 mmol/L (98-107); Estimated GFR-MDRD 50; Glucose 93 mg/dL (80-115); Potassium 3.8 mmol/L (3.5-5.1); Sodium 138 mmol/L (136-145)
[2018-04-09 07:46] LABS: Troponin I 1.011 ng/mL (< 0.028)
[2018-04-09] MEDS: Cyanocobalamin (Vitamin B-12) 1,000 MCG TAB PO SCH (08:14)
[2018-04-09] MEDS: Carvedilol 25 MG TAB PO SCH ×2 (08:14→17:10)
[2018-04-09] MEDS: hydrALAZINE 25 MG TAB PO SCH ×3 (08:15→21:36)
[2018-04-09] MEDS: Famotidine 20 MG TAB PO SCH (08:16)
[2018-04-09] MEDS: Famotidine/PF 20 mg/2ml Vial SLOW IVP SCH ×2 (08:16→21:38)
[2018-04-09] MEDS ORDERED: Non-Formulary Item 1 EACH (Cholecalciferol (Vitamin D3) [Vitamin D3] 2,000 UNIT) PO SCH (09:00)
[2018-04-09] MEDS ORDERED: Famotidine 20 MG TAB PO SCH (09:00)
[2018-04-09] MEDS ORDERED: Non-Formulary Item 1 EACH (Omeprazole [Omeprazole] 20 MG) PO SCH (09:00)
[2018-04-09] MEDS ORDERED: Aspirin 325 mg Enteric Coated Tablet PO SCH (09:00)
[2018-04-09] MEDS ORDERED: Aspirin 81 mg Enteric Coated Tablet PO SCH (09:00)
[2018-04-09] MEDS ORDERED: Non-Formulary Item 1 EACH (Cyanocobalamin (Vitamin B-12) [Vitamin B12] 1,000 MCG) PO SCH (09:00)
[2018-04-09] MEDS ORDERED: Non-Formulary Item 1 EACH (Sacubitril/Valsartan [Entresto 97 Mg-103 Mg Tablet] 1 TAB) PO SCH (09:00)
[2018-04-09] MEDS ORDERED: Non-Formulary Item 1 EACH (Hydralazine Hcl [Hydralazine Hcl] 50 MG) PO SCH (09:00)
[2018-04-09] MEDS ORDERED: Non-Formulary Item 1 EACH (Insulin Glargine,Hum.Rec.Anlog [Basaglar Kwikpen U-100] 20 UNI SQ SCH (09:00)
[2018-04-09] MEDS: Sacubitril 49 MG/Valsartan 51 MG TABLET PO SCH ×2 (09:40→21:38)
[2018-04-09] MEDS: Insulin Glargine 20 UNITS in Pre-Filled Syringe 1 EACH SC SCH ×2 (09:41→21:38)
--- NOTE | 2018-04-09 09:56 | HP ---
CHIEF COMPLAINS: Cough, nausea, vomiting, diarrhea, shortness of breath. HISTORY OF PRESENT ILLNESS: The patient is a 63-year-old female with past medical history of CHF, diabetes mellitus, hypertension, who presented to the emergency room for further evaluation of her 3-day lasting cough with some mucus sputum. She was not able to check her temperature, but she felt hot. She took Tylenol every 8 hours and so when she got to the emergency room, her temperature was down, but we do not know whether she had a real fever at home. She denies any chills. She denies any abdominal pain. She started having some nausea and vomiting, and diarrhea. She is cardiac patient. She has a history of CHF and she is on the care of Dr. Peterson. Apparently, she has some significant vomiting from taking Lasix and any other sulfa medications in the past. She felt relatively well until this Monday. Has shortness of breath. She noticed exacerbation while lying supine. She denied any chest pain. PAST MEDICAL HISTORY: Positive for, 1. Chronic left knee pain. 2. Diabetes mellitus type 2. 3. Hyperlipidemia. 4. Hypertension. PAST SURGICAL HISTORY: 1. Cholecystectomy. 2. Left wrist surgery. SOCIAL HISTORY: She denies any alcohol intake, cigarette smoking, or use any illicit drugs. ALLERGIES: LASIX, SULFA AND TRAMADOL. CURRENT MEDICATIONS: 1. Carvedilol 6.25 mg tablets, 12.5 mg twice a day. 2. Atorvastatin 40 mg at bedtime. 3. Aspirin 81 mg once a day. 4. Omeprazole 20 mg once a day. 5. Amelia 180 mg once a day. 6. Fergon 240 mg once a day. 7. Hydralazine 50 mg once a day. 8. Insulin Lantus 20 units twice a day. 9. Entresto two times a day. 10. Vitamin B12 1000 mcg once a day. FAMILY HISTORY: Negative for diabetes and hypertension. REVIEW OF SYSTEMS: All 14 systems were reviewed and symptoms were negative except for those, which are mentioned in HPI. PHYSICAL EXAMINATION: VITAL SIGNS: Blood pressure is 145/65, temperature is 98.8, pulse is 85, respiratory rate is 16, O2 saturation is 93% on 2 L by nasal cannula. HEENT: Head is atraumatic and normocephalic. Eyes, PERRLA. Sclerae are nonicteric. Oral mucosa is moist. NECK: Supple. No JVD. LUNGS: Crackles at the right base. No wheezing. No rales. HEART: S1, S2 somewhat distant. No S3. No S4. There is a systolic murmur mostly audible at the left sternal border, 3/6. ABDOMEN: Soft, nontender, nondistended. Bowel sounds are present. No organomegaly. EXTREMITIES: No clubbing, cyanosis. There is 1+ peripheral edema similar bilaterally around both ankles. NEUROLOGIC: She is alert and oriented x4. There is no any sensory or motor deficits present. Cranial nerves are intact. LABORATORY DATA: Showed white count 3.9, hemoglobin yesterday was 10.6 and today is 8.8, platelet count 184 yesterday and today 153,000. Chemistry showed troponin three sets 0.05, 1.156, and 1.011. BNP 1182, globulin 3.6, and the rest of chemistry within normal limits. Urinalysis showed more than 300 of protein, 15 ketones, moderate amount of blood, small amount of bilirubin, 21 to 50 RBCs on the scope, 7 to 10 hyaline casts, and the rest of urinalysis is within normal limits. Chest x-ray did not show any acute findings. EKG showed normal sinus rhythm, 93 beats per minute. No ischemic changes. IMPRESSION: 1. Acute gastroenteritis. 2. Shortness of breath suggestive of some exacerbation of congestive heart failure with elevated BNP and normal chest x-ray. 3. Elevated troponins, most likely demand ischemia. 4. History of congestive heart failure with left ventricular ejection fraction of 30% to 35 % per echo done in 2017. 5. Diabetes mellitus, type 2. 6. Hypertension. 7. Hyperlipidemia. PLAN: Full admission to Telemetry floor. Condition is fair. Activity bedrest and bathroom privileges. IV Hep-Lock. P.r.n. antiemetics. May continue home medications. Sliding scale with insulin for Accu-Cheks a.c. and at bedtime. Cardiology consultation with Dr. Medley. The patient's BNP was elevated in the emergency room. She did not have any BNP done during the previous visit, so we do not know how relevant is this level. We are going to use DVT prophylaxis with Lovenox and SCDs, and she will have aspirin 325 mg once a day and for now, we will continue Rocephin and azithromycin, which was started by the admitting physician, and we will keep her without any diuretics at this point since she had bad reactions to multiple previously used medications for her congestive heart failure according to her, and we will contact Dr. Medley regarding this. Job ID: [id number]
[2018-04-09] MEDS: Acetaminophen 325 MG TAB PO PRN ×2 (13:04→17:10)
[2018-04-09] MEDS: hydrALAZINE 20 MG/ML VIAL SLOW IVP PRN (15:08)
[2018-04-09] MEDS: Atorvastatin Calcium 40 MG TAB PO SCH (21:38)
[2018-04-09] MEDS ORDERED: Benzonatate 100 MG CAP PO PRN (21:57)
--- NOTE | 2018-04-09 22:25 | CON ---
DATE OF CONSULTATION: 04/09/2018 REASON FOR CONSULTATION: Elevated troponins. PRIMARY MACHINE STRIPER: Rosalie Peterson MD HISTORY OF PRESENT ILLNESS: Ms. Hanson is a pleasant 63-year-old female, who comes to the hospital for increased shortness of breath, cough, nausea, vomiting, and diarrhea. She developed this about 3 days ago. She came in, this is consistent with similar findings on other people here in the hospital who had this viral infection that gets worse with over infection of the bacteria, they do better with antibiotics. She has a history of nonischemic cardiomyopathy with an EF of 30% to 35%, 40% on heart catheterization with just [id number] coronary artery disease. She came in, her troponins were mildly elevated, so Cardiology has been consulted for this. She denies any chest pain, tightness, or pressure. Only had shortness of breath and cough. PAST MEDICAL HISTORY: 1. Chronic left knee pain. 2. Type 2 diabetes. 3. Hyperlipidemia. 4. Hypertension. PAST SURGICAL HISTORY: 1. Cholecystectomy. 2. Left wrist surgery. 3. Heart catheterization a year ago. SOCIAL HISTORY: No alcohol, tobacco, or drugs. ALLERGIES: SULFA, LASIX, AND TRAMADOL. OUTPATIENT MEDICATIONS: Include; 1. Carvedilol 12.5 mg twice a day. 2. Atorvastatin 40 mg at bedtime. 3. Aspirin 81 a day. 4. Omeprazole. 5. Amelia. 6. Fergon. 7. Hydralazine 50 mg daily. 8. Insulin Lantus 20 units twice a day. 9. Entresto. 10. Vitamin B12. FAMILY HISTORY: No early coronary artery disease. REVIEW OF SYSTEMS: A 12-point review of systems was done and was found to be negative unless stated in the history of present illness. PHYSICAL EXAMINATION: VITAL SIGNS: Temperature 98.1, pulse 75, respiratory rate 18, saturating 94% on 2 L nasal cannula, and blood pressure 149/67. GENERAL: Awake, alert, and oriented x3. No distress. HEENT: Normocephalic and atraumatic. NECK: Supple. LUNGS: Clear. CARDIOVASCULAR: S1, S2. No S3 or S4. ABDOMEN: Soft, positive bowel sounds. EXTREMITIES: No edema. SKIN: Warm and dry. LABORATORY DATA: Laboratory work was reviewed. CBC, chemistries, and urine were all reviewed. Chemistry, her troponin went from 0.05 to 0.15 and then 1.0. ASSESSMENT: 1. Non-ST elevation myocardial infarction: Demand ischemia most likely. 2. Acute bronchitis. 3. Nonischemic cardiomyopathy. 4. Fown-ap-qpdeozfz coronary artery disease. PLAN: 1. Continue conservative therapy, most likely this is related to her bronchitis. 2. No anginal symptoms. 3. Conservative therapy for now. We will re-evaluate tomorrow. Thank you for letting me to participate in the care of your patient. We will follow. Job ID: [id number]
[2018-04-10] MEDS ORDERED: methylPREDNISolone Sod Succ/PF 125 MG/2 ML VIAL IVP SCH (01:00)
[2018-04-10] MEDS ORDERED: Magnesium 2 GM/50 ML 2 GM in Premix Bag 1 BAG IVPB SCH (01:30)
[2018-04-10 03:37] LABS: Actual Bicarbonate (HCO3a) 21.9 mEq/L (22-28); Analyzer IN Cardio OR; Base Excess (BEa) -3.7 mEq/L (-2.0 to +3.0); CO2 Tension 41.9 mmHg (35.0-45.0); Carboxyhemoglobin (COHb) 0.7 gm% (0.0-3.0); Hemoglobin (Hb) 10.5 g/dL (12.0-16.0); O2 Tension (PaO2) 62.9 mmHg (> 80.0); Potassium - ABG Lab 3.91 mmol/L (3.70-5.30); pH, Arterial 7.34 (7.35-7.45)
[2018-04-10 03:38] LABS: ALV-art Gradient 141.405 (0-20); Puncture Site LRA
[2018-04-10] MEDS: cefTRIAXone\\ROCEPHIN 2 GM in Sodium Chloride 0.9% 100 ML IVPB SCH (04:49)
[2018-04-10] MEDS: Azithromycin 500 MG in Sodium Chloride 0.9% 250 ML 250 ML IVPB SCH (06:01)
[2018-04-10] MEDS: Mometasone/Formoterol 120 PUFF INHALER INH SCH ×2 (07:55→19:22)
[2018-04-10] MEDS: Insulin Glargine 20 UNITS in Pre-Filled Syringe 1 EACH SC SCH ×2 (09:26→20:34)
[2018-04-10] MEDS: Sacubitril 49 MG/Valsartan 51 MG TABLET PO SCH ×2 (09:27→20:34)
[2018-04-10] MEDS: Carvedilol 25 MG TAB PO SCH ×2 (09:27→16:20)
[2018-04-10] MEDS: Famotidine 20 MG TAB PO SCH (09:28)
[2018-04-10] MEDS: hydrALAZINE 25 MG TAB PO SCH ×3 (09:28→20:33)
[2018-04-10] MEDS: Cyanocobalamin (Vitamin B-12) 1,000 MCG TAB PO SCH (09:28)
[2018-04-10] MEDS: Famotidine/PF 20 mg/2ml Vial SLOW IVP SCH (09:29)
--- NOTE | 2018-04-10 09:53 | CT ---
PRELIMINARY REPORT/[facility]/EMERGENTY AFTER-HOURS PROCEDURE CT Angiography Chest With Contrast EXAM DATE/TIME: 04/10/2018 3:51 AM CLINICAL HISTORY: 63 years old, female; sob/difficulty breathing; Denies chest pain; TECHNIQUE: Axial computed tomographic angiography images of the chest with intravenous contrast using CT angiogr aphy protocol. MIP reconstructed images were created and reviewed. COMPARISON: No relevant prior studies available. FINDINGS: Pulmonary arteries: No visible pulmonary embolism. Aorta: The No aortic aneurysm. No aortic dissection. Aberrant right subclavian artery origin. Lungs: Multifocal coalescent nodular infiltrates throughout each lung most advanced in the right uppe r lobe, largest nodule measures approximately 14 mm posterior segment right upper lobe. Pleural space: Trace left effusion. Heart: There is moderate cardiomegaly. No pericardial effusion. Lymph nodes: Probable reactive mediastinal nodes. Bones/joints: Chronic degenerative spinal changes without acute fracture or dislocation. Soft tissues: Unremarkable. IMPRESSION: No visible pulmonary embolism. Multifocal nodular infiltrates, most likely infectious or inflammatory such as fungal / mycobacterial infection vs atypical pneumonia. Follow up to resolution advised. Probable reactive adenopathy. Trace left pleural effusion. Cardiomegaly. Thank you for allowing us to participate in the care of your patient. Dictated and Authenticated by: Frederick Patton MD 04/10/2018 5:00 AM Central Time ([place] & [place]) FINAL REPORT EMERGENT AFTER HOURS CT ANGIOGRAM THORAX WITH IV CONTRAST AND 3D RECONSTRUCTIONS: DATE 04/10/2018. HISTORY: Shortness of breath and difficulty breathing, chest pain. COMPARISON: None available. IMPRESSION: 1. No definite filling defect is seen within the central or segmental pulmonary arteries to suggest a pulmonary embolus. Subsegmental pulmonary arteries are not well opacified. 2. Vascular calcifications in the thoracic aorta. The thoracic aorta is normal in caliber without e vidence of an aortic dissection. 3. Aberrant right subclavian artery. 4. Scattered nodular and reticulonodular opacities seen throughout the lungs bilaterally much greate r involving the right lung compared to the left. Findings are worrisome for multifocal infectious pr ocess and atypical pneumonia should be considered. Followup to resolution is recommended. 5. Mediastinal lymphadenopathy with subcarinal lymph node measuring 2.4 cm in short axis dimension a nd a pretracheal lymph node measuring 1.7 cm in short axis dimension. Lymphadenopathy may be reactiv e in origin. 6. Postcholecystectomy changes. 7. Mild cardiomegaly. 8. Findings are in agreement with the preliminary report by [facility]. POS: SOLO
[2018-04-10] MEDS: Acetaminophen 325 MG TAB PO PRN (10:55)
[2018-04-10] MEDS: HumaLOG 300 UNITS/3 ML VIAL SC PRN ×2 (11:07→17:29)
[2018-04-10] MEDS ORDERED: guaiFENesin/DM ER PO SCH (13:30)
[2018-04-10 13:39] LABS: #Eosinphils 0.1 thou/uL (0.0-0.7); #Lymphocytes 0.6 thou/uL (1.20-3.40); #Monocytes 0.1 thou/uL (0.11-0.59); #Neutrophils 3.4 thou/uL (1.40-6.50); %Basophils 0.5 % (0.0-1.0); %Eosinophils 1.2 % (0.0-10.0); %Lymphocytes 14.9 % (21.0-51.0); %Monocytes 1.2 % (0.0-10.0); %Neutrophils 82.2 % (42.0-75.0); Hemoglobin 9.6 g/dL (12.0-16.0); Mean Corpuscular HGB CONC 32.7 g/dL (32.0-36.0); Mean Corpuscular Hemoglobin 29.4 pg (27.0-31.0); Mean Corpuscular Volume 89.9 fL (78.0-98.0); Mean Platelet Volume 6.8 fL (7.4-10.4); Platelet Count 151 thou/uL (130-400); RBC Distribution Width 11.9 % (11.5-14.5); Red Blood Cell (RBC) Count 3.28 mill/uL (4.20-5.40); White Blood Cell (WBC) Count 4.1 thou/uL (4.8-10.8)
[2018-04-10 13:56] LABS: Anion Gap 15 mmol/L (10-20); BUN (Urea Nitrogen) 31 mg/dL (9.8-20.1); Calc. Creatinine Clearance 81 mL/min (70-130); Calcium 8.9 mg/dL (7.8-10.44); Carbon Dioxide 22 mmol/L (23-31); Chloride 103 mmol/L (98-107); Estimated GFR-MDRD 37; Glucose 160 mg/dL (80-115); Potassium 4.1 mmol/L (3.5-5.1); Sodium 136 mmol/L (136-145)
--- NOTE | 2018-04-10 14:08 | PRG ---
DATE OF SERVICE: 04/10/2018 SUBJECTIVE: The patient is seen and examined at the bedside. She is feeling somewhat better. She was started on steroids last night and she saw improvement. OBJECTIVE: VITAL SIGNS: Blood pressure is 130/62; temperature maximal is 100.9, temperature now is 99.4; respiratory rate is 18; pulse is 94; pulse oximetry is 96% on 4 L by nasal cannula. She is obese lady. Her BMI is 49. GENERAL: She looks quite comfortable during my visits. There are many members of the family in the room during my visit. HEENT: Her head is atraumatic and normocephalic. Sclerae are nonicteric. Oral mucosa is moist. NECK: Supple. LUNGS: Bilateral rales present. Few wheezes bilaterally. HEART: S1 and S2 normal. No S3. No S4. There is systolic murmur at the left sternal border, mostly audible 3/6. ABDOMEN: Obese, soft, nontender. Bowel sounds are present. No organomegaly. EXTREMITIES: No clubbing, cyanosis, or edema. NEUROLOGIC: She is alert and oriented x4. There is no any sensory or motor deficit. Cranial nerves are intact. LABORATORY DATA: Labs pending. Glycemia is ranging from 92 to 176. Microbiology, no growth on urine culture. Two blood cultures negative. CT angiogram of the chest showed; 1. No PE. 2. Scattered nodular and reticulonodular opacities seen throughout the lungs bilaterally, much greatly involved in the right lung compared to the left, most likely atypical pneumonia. IMPRESSION: 1. Pneumonia, most likely atypical. We will switch her from azithromycin and Rocephin to levofloxacin. She will continue on steroids and DuoNeb. 2. Gastroenteritis, resolved. 3. Elevated troponin, most likely demand ischemia versus non-ST elevation myocardial infarction. 4. Nonischemic cardiomyopathy. 5. Diabetes mellitus, well controlled. 6. Hypertension, controlled. 7. Hyperlipidemia. PLAN: As I mentioned above, continue DuoNeb. Continue steroids. Continue new antibiotic, will be levofloxacin. Pulmonary consult. The patient was seen by Dr. Medley for Cardiology evaluation. We will continue SCDs and Lovenox for DVT prophylaxis. We will continue aspirin and continue O2 supplementation. Job ID: [id number]
[2018-04-10 14:33] LABS: Troponin I 2.211 ng/mL (< 0.028)
--- NOTE | 2018-04-10 16:07 | CON ---
DATE OF CONSULTATION: REASON FOR CONSULTATION: She is coughing with some yellow sputum. HISTORY OF PRESENT ILLNESS: Paris Hanson is a 63-year-old morbidly obese female, who weighs 124 kg, presented to the hospital on April 08 with shortness of breath, coughing and wheezing. Last night, she got worsen. She has never smoked. Her sats are 91% on room air, pulse was 90. Since admission, a chest x-ray and a CAT scan were done. Chest x-ray showed broad platelike atelectatic change in the right lung. CAT scan shows multiple bilateral nodular infiltrates consistent with probably organizing pneumonia. She denies any previous history of TB, asthma, though has history of pneumonia. She snores according to the daughter and apparently has witnessed apnea. She has never been tested for sleep apnea. Most days, she can barely walk 100 feet without getting markedly short of breath. PAST MEDICAL HISTORY: Diabetes, hypertension, neuropathy, CHF, Andrade's palsy, high cholesterol, hyperlipidemia, morbid obesity, sleep apnea. PAST SURGICAL HISTORY: Cholecystectomy, left wrist. SOCIAL HISTORY: Alcohol, none. Tobacco, none. HOME MEDICATIONS: 1. Hydralazine 50 three times a day. 2. Entresto one tablet twice a day=. 3. Omeprazole 20. 4. Insulin. 5. B12. 6. Coreg 12.5. 7. Lipitor 40. 8. Aspirin 81. REVIEW OF SYSTEMS: Otherwise 10-point negative. PHYSICAL EXAMINATION: GENERAL: She is awake, alert, and responsive. VITAL SIGNS: Her sats are 94% on 4 L, temperature 98, pulse 70, and blood pressure 133/63. CHEST: Decreased breath sounds. Minimal crackles. CARDIAC: Normal S1 and S2. No gallops. There is a 2/6 ejection systolic murmur over the right upper sternal border. ABDOMEN: Distended, obese. EXTREMITIES: Trace edema. LABORATORY DATA: White count 4000, H and H 9 and 29, platelet count is 151. PO2 was 62, pCO2 of 41, pH 7.39. Troponin is elevated. Glucose 160, creatinine 1.43. Her BNP is 1182. IMPRESSION: 1. Acute on chronic respiratory failure secondary to congestive heart failure. 2. Possibly superimposed organizing pneumonia. 3. Nonsmoker. 4. Sleep apnea. 5. Diabetes. PLAN: Switch over to oral antibiotics tomorrow. Otherwise, continue supportive care, PT, outpatient sleep study. Await input from Cardiology. Consultation note, 70 minutes, of which 50% in direct patient care. Job ID: [id number]
--- NOTE | 2018-04-10 16:56 | PDOC.CTH ---
Cardiology Progress Note - Subjective She is doing well. Feels better. - Objective Vital Signs Temp Pulse Resp BP Pulse Ox 04/10/18 15:37 84 16 04/10/18 15:35 98.3 F 83 18 162/72 H 93 L 04/10/18 11:27 78 18 04/10/18 11:02 98.7 F 83 22 H 136/63 94 L 04/10/18 08:03 99.4 F 94 20 130/62 96 04/10/18 07:55 88 16 04/10/18 07:47 95 04/10/18 07:44 88 16 04/10/18 05:00 100.9 F H 93 20 175/92 H 95 Weight 277 lb 14.4 oz 04/09/18 04/10/18 04/11/18 06:59 06:59 06:59 Intake Total 1979 Output Total 940 Balance 1039 - Physical Examination General/Neuro: alert & oriented x3, NAD Neck: no JVD present Lungs: unlabored respirations Heart: RRR Abdomen: NT/ND Extremities: + edema B (1+) - Telemetry Telemetry Rhythm: NSR - Labs Result Diagrams: 04/10/18 13:29 04/10/18 13:29 Troponin/CKMB CK-MB (CK-2) 1.9 ng/mL (0-6.6) 04/08/18 22:34 Troponin I 2.211 ng/mL (< 0.028) H* 04/10/18 13:29 - Assessment/Plan 1. Acute on chronic systolic heart failure. 2. Mild to moderate CAD 3. Non ischemic CM EF at 35-40% 4. Acute bronchitis 5. NSTEMI, demand ischemia. PLAN: - Allergic to lasix will challenge with IV Bumex to try to diurese.
[2018-04-10 18:20] LABS: Legionella Urinary Ag Negative (Negative)
[2018-04-10] MEDS: guaiFENesin/DM ER PO SCH (20:33)
[2018-04-10] MEDS: Atorvastatin Calcium 40 MG TAB PO SCH (20:33)
[2018-04-11] MEDS: Acetaminophen 325 MG TAB PO PRN (01:05)
[2018-04-11 05:16] LABS: #Basophils 0.1 thou/uL (0.0-0.2); #Lymphocytes 0.6 thou/uL (1.20-3.40); #Monocytes 0.3 thou/uL (0.11-0.59); #Neutrophils 4.8 thou/uL (1.40-6.50); %Eosinophils 0.3 % (0.0-10.0); %Lymphocytes 10.8 % (21.0-51.0); %Monocytes 4.5 % (0.0-10.0); %Neutrophils 83.3 % (42.0-75.0); Hemoglobin 9.5 g/dL (12.0-16.0); Mean Corpuscular HGB CONC 33.4 g/dL (32.0-36.0); Mean Corpuscular Hemoglobin 29.8 pg (27.0-31.0); Mean Corpuscular Volume 89.3 fL (78.0-98.0); Platelet Count 167 thou/uL (130-400); RBC Distribution Width 11.6 % (11.5-14.5); Red Blood Cell (RBC) Count 3.19 mill/uL (4.20-5.40); White Blood Cell (WBC) Count 5.8 thou/uL (4.8-10.8)
[2018-04-11] MEDS: Ondansetron PF 4 MG/2 ML Vial IVP PRN ×2 (05:33→14:21)
[2018-04-11] MEDS: Bumetanide 1 MG/4 ML VIAL IVP SCH ×2 (05:54→14:45)
[2018-04-11] MEDS: Mometasone/Formoterol 120 PUFF INHALER INH SCH ×2 (06:49→19:10)
[2018-04-11] MEDS: Famotidine 20 MG TAB PO SCH (08:23)
[2018-04-11] MEDS: Carvedilol 25 MG TAB PO SCH ×2 (08:23→16:28)
[2018-04-11] MEDS: Cyanocobalamin (Vitamin B-12) 1,000 MCG TAB PO SCH (08:23)
[2018-04-11] MEDS: guaiFENesin/DM ER PO SCH ×2 (08:24→21:01)
[2018-04-11] MEDS: hydrALAZINE 25 MG TAB PO SCH ×3 (08:24→20:59)
[2018-04-11] MEDS: Sacubitril 49 MG/Valsartan 51 MG TABLET PO SCH ×2 (08:24→21:05)
[2018-04-11] MEDS: Insulin Glargine 20 UNITS in Pre-Filled Syringe 1 EACH SC SCH ×2 (08:28→21:05)
--- NOTE | 2018-04-11 10:07 | PRG ---
DATE OF SERVICE: 04/11/2018 SUBJECTIVE: A 63-year-old female. This morning, she is better, less cough, less shortness of breath. I did not see any obvious infiltrates on her chest x-ray, but the CAT scan did show some reticulonodular infiltrates. OBJECTIVE: VITAL SIGNS: Sats are 93% on 4 L, temperature 97, pulse 85, blood pressure 153/70. CHEST: Decreased breath sounds. No wheezing. CARDIAC: Normal S1, S2. ABDOMEN: No masses. LABORATORY DATA: White count is normal. IMPRESSION: 1. Bronchitis, probably atypical pneumonia. 2. Most of it appears to be congestive heart failure. PLAN: Switch over to oral medication. PT, supportive care. Home when okay with Cardiology. Job ID: [id number]
[2018-04-11] MEDS: HumaLOG 300 UNITS/3 ML VIAL SC PRN ×2 (11:58→16:54)
--- NOTE | 2018-04-11 12:28 | PRG ---
DATE OF SERVICE: 04/11/2018 SUBJECTIVE: The patient is seen and examined at the bedside. She is feeling better. She is able to eat some meals. OBJECTIVE: VITAL SIGNS: Blood pressure is 171/77, pulse is 89, temperature is 97.9, maximal temperature is 100.9, respiratory rate 16, and O2 saturations 92% on 4 L. HEENT: Head is atraumatic and normocephalic. PERRLA. Sclerae are nonicteric. Oral mucosa is moist. NECK: Supple. LUNGS: Bilateral rales with rhonchi. HEART: S1 and S2 normal. No S3. No S4. ABDOMEN: Obese, soft, nontender. EXTREMITIES: 1+ peripheral edema similar bilaterally. LABORATORY DATA: None today. IMPRESSION: 1. Atypical pneumonia. The patient is on oral levofloxacin. She is going to continue her DuoNeb. Steroid dose was lowered to 20 mg of prednisone daily by credit analysis manager, who saw her on consultation. 2. Gastroenteritis, resolved. 3. Odg-SA-yhjltks elevation myocardial infarction. 4. Nonischemic cardiomyopathy. 5. Diabetes mellitus, well controlled. 6. Hypertension, uncontrolled. 7. Hyperlipidemia. PLAN: Plan is to continue her DuoNeb. Start her walking twice a day with assistance. The patient was seen by credit analysis manager and mortgage loan computation clerk. She will be started on Bumex by Dr. Medley and she is seeing today by Dr. Ramirez for Cardiology re-evaluation. She did not have any vomiting from Bumex. We will continue O2 supplementation. She still requires 4 L by nasal cannula, but we will see whether we can lower this rate since she is improving gradually. Continue her insulin glargine 20 units once a day and Cardiology is going to probably make some adjustments to her blood pressure medications since her blood pressure is a running high today. Job ID: [id number]
[2018-04-11] MEDS: hydrALAZINE 20 MG/ML VIAL SLOW IVP PRN (16:22)
[2018-04-11] MEDS: Atorvastatin Calcium 40 MG TAB PO SCH (22:20)
[2018-04-12] MEDS: Bumetanide 1 MG/4 ML VIAL IVP SCH ×2 (06:02→14:29)
[2018-04-12] MEDS: Ondansetron PF 4 MG/2 ML Vial IVP PRN ×2 (06:02→14:29)
[2018-04-12 06:05] LABS: #Lymphocytes 1.1 thou/uL (1.20-3.40); #Monocytes 0.6 thou/uL (0.11-0.59); #Neutrophils 4.2 thou/uL (1.40-6.50); %Basophils 0.5 % (0.0-1.0); %Eosinophils 0.3 % (0.0-10.0); %Monocytes 9.5 % (0.0-10.0); %Neutrophils 71.7 % (42.0-75.0); Mean Corpuscular HGB CONC 32.3 g/dL (32.0-36.0); Mean Corpuscular Hemoglobin 29.2 pg (27.0-31.0); Mean Corpuscular Volume 90.3 fL (78.0-98.0); Mean Platelet Volume 7.2 fL (7.4-10.4); Platelet Count 180 thou/uL (130-400); RBC Distribution Width 11.9 % (11.5-14.5); Red Blood Cell (RBC) Count 3.08 mill/uL (4.20-5.40); White Blood Cell (WBC) Count 5.8 thou/uL (4.8-10.8)
[2018-04-12 06:18] LABS: Anion Gap 11 mmol/L (10-20); BUN (Urea Nitrogen) 51 mg/dL (9.8-20.1); Calc. Creatinine Clearance 57 mL/min (70-130); Calcium 8.8 mg/dL (7.8-10.44); Carbon Dioxide 26 mmol/L (23-31); Chloride 103 mmol/L (98-107); Estimated GFR-MDRD 25; Glucose 92 mg/dL (80-115); Potassium 4.3 mmol/L (3.5-5.1); Sodium 136 mmol/L (136-145)
[2018-04-12] MEDS: Mometasone/Formoterol 120 PUFF INHALER INH SCH (06:41)
[2018-04-12] MEDS ORDERED: predniSONE 20 MG TAB PO SCH (08:00)
[2018-04-12] MEDS: guaiFENesin/DM ER PO SCH (08:30)
[2018-04-12] MEDS: Cyanocobalamin (Vitamin B-12) 1,000 MCG TAB PO SCH (08:30)
[2018-04-12] MEDS: hydrALAZINE 25 MG TAB PO SCH ×2 (08:30→14:29)
[2018-04-12] MEDS: Famotidine 20 MG TAB PO SCH (08:30)
[2018-04-12] MEDS: Carvedilol 25 MG TAB PO SCH (08:30)
[2018-04-12] MEDS: Sacubitril 49 MG/Valsartan 51 MG TABLET PO SCH (08:31)
[2018-04-12] MEDS: Insulin Glargine 20 UNITS in Pre-Filled Syringe 1 EACH SC SCH (08:31)
--- NOTE | 2018-04-12 09:34 | PRG ---
DATE OF SERVICE: 04/12/2018 SUBJECTIVE: Valentin is a morbidly obese female. This morning, she is better. She is still short of breath. LABORATORY DATA: Creatinine is 2, BUN 51, white count is only 5000 with no left shift. OBJECTIVE: VITAL SIGNS: Saturations are 98% on 1 L, blood pressure of 177/77, temperature 97, pulse 71, and respiratory rate 18. CHEST: Minimal crackles, without any wheezing. CARDIAC: Normal S1 and S2. No gallops. ABDOMEN: No masses. IMPRESSION: 1. Diastolic dysfunction, markedly elevated BNP accounting for most of her pulmonary issues. 2. Probably atypical pneumonia, but white count is normal. I doubt this is a large component of her pulmonary issues. 3. Morbid obesity,\\sleep apnoe. She can be discharged home any time on antibiotic, low-dose prednisone for about a week. Follow up in the office for outpatient sleep study. Job ID: [id number] [id number]
[2018-04-12 13:53] VITALS: BP 146/66; TEMP 98
== END 2018-04-12 15:41 | disposition home or self-care (01) | DRG 280 ==
LOC: ERS 21:45 → 2NO 04-09 01:08
PROVIDERS: ADMIT Internal Medicine; ATTEND Internal Medicine
DX: I21.4 Non-ST elevation (NSTEMI) myocardial infarction (principal); J96.20 Acute and chronic respiratory failure, unspecified whether with hypoxia or hypercapnia; I50.23 Acute on chronic systolic (congestive) heart failure; I42.8 Other cardiomyopathies; Z68.42 Body mass index [BMI] 45.0-49.9, adult; N17.9 Acute kidney failure, unspecified; I21.A1 Myocardial infarction type 2; I11.0 Hypertensive heart disease with heart failure; I25.10 Atherosclerotic heart disease of native coronary artery without angina pectoris; K52.9 Noninfective gastroenteritis and colitis, unspecified; E11.40 Type 2 diabetes mellitus with diabetic neuropathy, unspecified; E78.00 Pure hypercholesterolemia, unspecified; G47.30 Sleep apnea, unspecified; Z79.82 Long term (current) use of aspirin; Z79.4 Long term (current) use of insulin; Z88.2 Allergy status to sulfonamides; Z88.8 Allergy status to other drugs, medicaments and biological substances
CPT/HCPCS: 36415; 36416; 71045; 71275; 80048; 80053; 81003; 81015; 82553; 82805; 83605; 83690; 83880; 84484; 85025; 87040; 87086; 87804; 87899; 93005; 93798; 94640; 96374; 96375; J0360; J0456; J0696; J1956; J2405; J2920; J2930; J3490; J7050; J7506; J7620; S0028

== ENCOUNTER 2019-09-12 08:57 | Emergency (ER) | payer BC, OTHER ==
[2019-09-12 18:19] LABS: SARS-CoV-2 MS2 Positive; SARS-CoV-2 N Gene Negative; SARS-CoV-2 S Gene Negative; SARS-CoV-2 orf1ab Negative
== END 2019-09-12 09:34 | disposition home or self-care (01) ==
LOC: ERS 08:57
DX: Z20.828 Contact with and (suspected) exposure to other viral communicable diseases (principal); E11.9 Type 2 diabetes mellitus without complications; E78.5 Hyperlipidemia, unspecified; I11.0 Hypertensive heart disease with heart failure; I50.9 Heart failure, unspecified; Z79.4 Long term (current) use of insulin; E78.00 Pure hypercholesterolemia, unspecified; Z79.891 Long term (current) use of opiate analgesic; Z79.82 Long term (current) use of aspirin; Z79.899 Other long term (current) drug therapy
CPT/HCPCS: 87635; 99283; U0003

== ENCOUNTER 2021-02-04 23:13 | Emergency (ER) | payer BC ==
[2021-02-05] MEDS ORDERED: Ondansetron PF 4 MG/2 ML Vial ONE (00:37)
[2021-02-05] MEDS ORDERED: Fentanyl 100 MCG/2 ML VIAL ONE ×2 (00:37→01:42)
[2021-02-05 00:46] LABS: #Lymphocytes 1.4 thou/uL (1.20-3.40); #Monocytes 0.5 thou/uL (0.11-0.59); %Basophils 0.1 % (0.0-1.0); %Eosinophils 0.4 % (0.0-10.0); %Lymphocytes 12.7 % (21.0-51.0); %Monocytes 4.6 % (0.0-10.0); %Neutrophils 82.3 % (42.0-75.0); Hemoglobin 11.2 g/dL (12.0-16.0); Mean Corpuscular HGB CONC 33.4 g/dL (32.0-36.0); Mean Corpuscular Hemoglobin 30.6 pg (27.0-31.0); Mean Corpuscular Volume 91.5 fL (78.0-98.0); Mean Platelet Volume 6.9 fL (7.4-10.4); Platelet Count 309 thou/uL (130-400); RBC Distribution Width 10.9 % (11.5-14.5); Red Blood Cell (RBC) Count 3.67 mill/uL (4.20-5.40); White Blood Cell (WBC) Count 10.9 thou/uL (4.8-10.8)
[2021-02-05 00:50] LABS: Bilirubin Negative (Negative); Blood, Urine Trace (Negative); Clarity Clear (Clear); Glucose, Urine (Dipstick) 30 mg/dL (Negative); Ketone, Urine Negative (Negative); Leukocyte 250 Leu/uL (Negative); Nitrite Negative (Negative); Protein, Urine (Dipstick) 300 mg/dL (Neg-Trace); Specific Gravity, Urine 1.016 (1.002-1.036); Urobilinogen Normal mg/dL (Less than 2); pH, Urine 6.5 (5.0-9.0)
[2021-02-05] MEDS ORDERED: hydrALAZINE 20 MG/ML VIAL ONE (01:06)
[2021-02-05 01:09] LABS: ALT (SGPT) 14 U/L (8-55); AST (SGOT) 17 U/L (5-34); Albumin 3.6 g/dL (3.4-4.8); Alkaline Phosphatase 81 U/L (40-110); Anion Gap 12 mmol/L (10-20); BUN (Urea Nitrogen) 41 mg/dL (9.8-20.1); Bilirubin, Total 0.5 mg/dL (0.2-1.2); Calc. Creatinine Clearance 0 mL/min (70-130); Calcium 9.2 mg/dL (7.8-10.44); Carbon Dioxide 25 mmol/L (23-31); Chloride 102 mmol/L (98-107); Globulin 3.1 g/dL (2.4-3.5); Glucose 134 mg/dL (80-115); Potassium 4.7 mmol/L (3.5-5.1); Protein, Total 6.7 g/dL (5.8-8.1); Sodium 134 mmol/L (136-145)
[2021-02-05] MEDS ORDERED: Amoxicillin/Potassium Clav 875 MG TAB ONE (03:06)
[2021-02-05] MEDS ORDERED: Ondansetron ODT 8 MG TAB ONE (03:17)
== END 2021-02-05 03:20 | disposition home or self-care (01) ==
LOC: ERS 23:13
DX: K57.32 Diverticulitis of large intestine without perforation or abscess without bleeding (principal); N39.0 Urinary tract infection, site not specified; E11.9 Type 2 diabetes mellitus without complications; E78.5 Hyperlipidemia, unspecified; E78.00 Pure hypercholesterolemia, unspecified; I11.0 Hypertensive heart disease with heart failure; I50.9 Heart failure, unspecified; Z79.82 Long term (current) use of aspirin; Z79.4 Long term (current) use of insulin; Z79.899 Other long term (current) drug therapy
CPT/HCPCS: 36415; 74176; 80053; 81003; 81015; 85025; 96374; 96375; 96376; J0360; J2405; J3010; Q0162

== ENCOUNTER 2021-03-15 07:38 | Outpatient (CLI) | payer BC ==
[2021-03-16 10:59] LABS: SARS-CoV-2 PCR by NAA Not Detected (NotDetected)
== END 2021-03-15 07:39 | disposition home or self-care (01) ==
LOC: LABBT 07:38
PROVIDERS: ATTEND Internal Medicine Gastroenterology
DX: Z01.812 Encounter for preprocedural laboratory examination (principal); Z20.822 Contact with and (suspected) exposure to COVID-19
CPT/HCPCS: U0003; U0005

== ENCOUNTER 2021-03-18 08:57 | Day surgery (SDC) | payer BC ==
[2021-03-17 10:11] VITALS: BMI 49.6
[2021-03-18] MEDS ORDERED: PROPOFOL 200 MG/20 ML VIAL ONE (11:17)
[2021-03-18] MEDS ORDERED: Lidocaine 1% PF 5 ML VIAL ONE (11:17)
== END 2021-03-18 13:10 | disposition home or self-care (01) ==
LOC: SDC 08:57
PROVIDERS: ATTEND Internal Medicine Gastroenterology
PROC: 0DBN8ZX Excision of Sigmoid Colon, Via Natural or Artificial Opening Endoscopic, Diagnostic (ICD-10-PCS; principal; 2021-03-18)
PROC: 0DBM8ZX Excision of Descending Colon, Via Natural or Artificial Opening Endoscopic, Diagnostic (ICD-10-PCS; principal; 2021-03-18)
DX: Z12.11 Encounter for screening for malignant neoplasm of colon (principal); D12.4 Benign neoplasm of descending colon; D12.5 Benign neoplasm of sigmoid colon; K57.30 Diverticulosis of large intestine without perforation or abscess without bleeding; I13.0 Hypertensive heart and chronic kidney disease with heart failure and stage 1 through stage 4 chronic kidney disease, or unspecified chronic kidney disease; E11.22 Type 2 diabetes mellitus with diabetic chronic kidney disease; N18.9 Chronic kidney disease, unspecified; I50.9 Heart failure, unspecified; K21.9 Gastro-esophageal reflux disease without esophagitis; E78.00 Pure hypercholesterolemia, unspecified; E66.01 Morbid (severe) obesity due to excess calories; Z68.42 Body mass index [BMI] 45.0-49.9, adult; Z86.010 Personal history of colon polyps; Z79.4 Long term (current) use of insulin; Z79.82 Long term (current) use of aspirin; Z79.899 Other long term (current) drug therapy; Z88.2 Allergy status to sulfonamides; Z88.5 Allergy status to narcotic agent; Z88.8 Allergy status to other drugs, medicaments and biological substances; Z91.018 Allergy to other foods
CPT/HCPCS: 36416; 88305; J2704

== ENCOUNTER 2023-07-07 11:47 | Outpatient (CLI) | payer MEDICARE | END 2023-07-07 11:48 | disposition home or self-care (01) | LOC: SCSRAD 11:47 | PROVIDERS: ATTEND Physician Assistant | DX: R05.3 Chronic cough (principal) | CPT/HCPCS: 71046 ==